=== PATIENT | male | born 1945 | race Caucasian/White ===

== ENCOUNTER 2021-04-26 18:11 | Emergency (ER) | payer MEDICARE ==
[~2021-04-26] VITALS: Ht 180.3 cm; Wt 81.8 kg
--- NOTE | 2021-04-26 18:40 | REP ---
INDICATION: Syncope/near-syncope. COMPARISON: None TECHNIQUE: Portable AP chest with the patient sitting. FINDINGS: There are coarsened interstitial markings in the lung bases bilaterally. In the absence of comparison studies I cannot determine if this is chronic or acute. The lung prakash are otherwise clear. Cardiac size is normal. The dolores, mediastinum, and skeletal structures are unremarkable. There is a dual chamber pacemaker. IMPRESSION: Coarsened interstitial markings in the lung bases, chronic versus acute. <Electronically signed by Jaguar Davis > 04/26/21 [id number]
[2021-04-26 19:02] LABS: BASO # 0.1 10^3/uL (0.0-0.2); BASO % 0.4 % (0.0-1.0); EOS # 0.1 10^3/uL (0.0-0.5); EOS % 1.1 % (0.0-3.0); HEMATOCRIT 46.4 % (42.0-52.0); HEMOGLOBIN 15.1 g/dl (13.5-17.5); LYMPH # 2.3 10^3/uL (1.5-5.0); LYMPH % 19.4 % (24.0-44.0); MEAN CORPUSCULAR HEMOGLOBIN 31.9 pg (27.0-33.0); MEAN CORPUSCULAR HGB CONC 32.5 g/dl (32.0-36.5); MEAN CORPUSCULAR VOLUME 98.1 fl (80.0-96.0); MONO # 0.8 10^3/uL (0.0-0.8); NEUTROPHILS # 8.3 10^3/uL (1.5-8.5); NEUTROPHILS % 71.7 % (36.0-66.0); PLATELET COUNT, AUTOMATED 170 10^3/uL (150-450); RED BLOOD COUNT 4.73 10^6/uL (4.30-6.10); WHITE BLOOD COUNT 11.6 10^3/uL (4.0-10.0)
[2021-04-26] MEDS ORDERED: GABA-282 PO (19:18)
[2021-04-26] MEDS ORDERED: ROSU20TA5 PO (19:18)
[2021-04-26] MEDS ORDERED: BENA20TA6 PO (19:18)
[2021-04-26] MEDS ORDERED: METO200T28 PO (19:18)
[2021-04-26 19:49] LABS: BLOOD UREA NITROGEN 15 MG/DL (7-18); CALCIUM LEVEL 9.1 MG/DL (8.8-10.2); CARBON DIOXIDE LEVEL 28 MEQ/L (21-32); CHLORIDE LEVEL 108 MEQ/L (98-107); CK-MB VALUE MASS 2.1 NG/ML (<3.6); CPK CREATINE PHOSPHOKINASE 168 U/L (39-308); CREATININE FOR GFR 1.35 MG/DL (0.70-1.30); GLOMERULAR FILTRATION RATE 54.7 (>42); GLUCOSE, FASTING 104 MG/DL (70-100); MB/CK RELATIVE INDEX 1.25 (< OR =4); POTASSIUM SERUM 4.1 MEQ/L (3.5-5.1); SODIUM LEVEL 142 MEQ/L (136-145); TROPONIN I < 0.02 NG/ML (< 0.10)
[2021-04-26] MEDS ORDERED: NS 1,000 ML IV ONE (20:40)
[2021-04-26 21:51] LABS: ETHYL ALCOHOL (ETHANOL) 0.007 % (0.000-0.010)
[2021-04-26 23:45] VITALS: BP 157/71
[2021-04-27] MEDS ORDERED: AUGM875T28 PO (01:35)
[2021-04-27] MEDS ORDERED: AZIT500T5 PO (01:35)
--- NOTE | 2021-04-27 07:52 | ECGEPIP ---
[facility] - ED Test Date: 2021-04-26 Pat Name: JOHNNIE ZABALA Department: Room: - Gender: Male Sh[employer] Weaver: DARLENE : 1945 Requested By: Natasha Parker Order Number: [id number] Reading MD: Jose Mueller Measurements Intervals [place] Rate: 60 P: 29 OK: 258 QRS: -20 QRSD: 84 T: 25 QT: 424 QTc: 424 Interpretive Statements Atrial-paced rhythm with prolonged AV conduction Inferior infarct , age undetermined NO PRIORS FOR COMPARISON Electronically Signed on 04-27-2021 7:52:28 EDT by Jose Muleler
== END 2021-04-27 00:13 | disposition home or self-care (01) ==
LOC: M ED 18:11
DX: J18.9 Pneumonia, unspecified organism (principal); E86.0 Dehydration; R55 Syncope and collapse; I10 Essential (primary) hypertension; E78.5 Hyperlipidemia, unspecified; Z95.0 Presence of cardiac pacemaker; F17.200 Nicotine dependence, unspecified, uncomplicated; Z91.030 Bee allergy status